=== PATIENT | female | born 1980 | race Caucasian/White ===

== ENCOUNTER 2022-06-09 00:07 | Day surgery (SDC) | payer OTHER, SELFPAY ==
[2022-06-03 09:48] VITALS: BMI 28.0
--- NOTE | 2022-06-03 09:52 | PC.NURSE ---
Report to the Outpatient Waiting Room, entrance under the green pavilion located off [facility], at time 0600 on date 06/09/22. Planned Procedure Time: 0730. Time changes happen often and if your time is changed the preop area will call you the afternoon before. - You and your visitor will be asked to self-screen and do not enter if you have any COVID symptoms. - We encourage only one visitor and NO visitors under age 16 are allowed at this time. Your visitor will receive communication by the phone number that is given day of service. - The patient visitor is requested to social distance or may leave the building when not with patient due to restrictions. - A mask is OPTIONAL within the hospital. Patients may have clear liquids (water, carbonated beverages, clear teas, apple juice) until 3 hours prior to surgery with a maximum of 20 ounces. - No food from midnight until time of surgery Take the following medications with a SIP of water the morning of surgery: N/A Medications to discontinue per physician: N/A Date to take last dose: N/A Please no make-up, nail faroese, hairspray, perfume, deodorant, or body powder the day of surgery. No jewelry (including any body piercings) or valuables the day of surgery, leave them at home. Please take a shower or bath the night before, or the morning of, surgery with an antibacterial soap. Wear comfortable, loose fitting clothing. - Jewelry must be removed prior to entering the operating room. Rings and piercings that are not removed may be cut off. - The hospital will not accept responsibility for valuables. - Please leave all valuables, including medications, at home the day of surgery. If you are going home after surgery, a licensed road driver must drive you home. - NO public transportation without another adult. - We recommend that an adult stay with you for 24 hours following discharge. - We also recommend that you do not drive, make important decision, drink alcoholic beverages, or take any drugs that were not prescribed by your health care provider for at least 24 hours after your discharge time. Follow any additional instructions given to you from your surgeon. If you or anyone in your household have experienced Covid symptoms in the past week, please notify your surgeon or the nurse liaison at the phone number below for possible testing. Telephone instructions given to PT - RENEE PRASANNA and asked if any additional questions and then verbalized understanding. Patient advised to call surgeon office or pre surgery nurse liaison [phone] if any additional questions.
[2022-06-09] VITALS (12 sets, daily range): BP systolic 101–126; BP diastolic 58–83; PULSE 60–95; RESP 10–18; TEMP 36.1–37.5; O2SAT 97–100
--- NOTE | 2022-06-09 05:51 | ECG_ITS ---
Measurements Intervals [place] Rate: 61 P: 29 WV: 166 QRS: 65 QRSD: 88 T: 39 QT: 391 QTc: 395 Interpretive Statements SINUS RHYTHM NORMAL ECG NO PREVIOUS ECG AVAILABLE FOR COMPARISON Electronically Signed On 06-09-2022 7:56:16 [employer] by Antony Acosta D.O.
[2022-06-09 06:45] LABS: Urine Cotinine NEGATIVE
[2022-06-09] MEDS: LACTATED RINGERS 1,000 ML 30 ML IV CONT ×2 (06:45→12:04)
[2022-06-09 06:50] LABS: Hematocrit 40.6 % (37.0-47.0); Hemoglobin 14.1 g/dL (12.0-15.0)
--- NOTE | 2022-06-09 06:58 | WPDHPUPDATE1 ---
History and Physical Update Update Date/Time: 06/09/22 06:58 History and Physical has been reviewed, including an updated exam of the patient. There are NO changes in the patient's condition. Risks, benefits, and alternatives have been discussed and questions answered. Patient agrees to proceed with procedure.
--- NOTE | 2022-06-09 07:18 | W.PM.PROC2 ---
Procedure Note - Detailed Date of Procedure 06/09/22 Pre-op Diagnosis Skin Laxity, Gilbert Micromastia Post-op Diagnosis Same Procedure Performed 1. Bilateral augmentation mammaplasty 2. Progressive tension abdominoplasty with suction lipectomy Surgeon Manny Cunningham MD Anesthesia General Findings Bilateral dual plane 3 augmentation Dov Blankenship SoftTouch 350cc implants Right - REF# SSL-350 SN [id number] Left - REF# [id number] SN [id number] Lipoaspirate: 2250 cc Description of Procedure They are here today for the above. Previously and again today the risks, benefits, alternatives were discussed in extensive detail. I wanted them to be very realistic about the risks involved as well as expectations. We discussed aftercare and what to monitor for. We again discussed implant selection and she is very interested in a low profile implant. I was very upfront about the risks of wound breakdown leading to loss of skin, open wounds, and need for additional procedures with permanent abdominal deformity. We discussed DVT/PE risks and management. Made sure answered all of their questions to their satisfaction today and consent was obtained. Marked in the preoperative holding area with their verification. The patient was taken to the operating room placed supine on the operating table. Anesthesia was provided by anesthesiology. A Hastings catheter was started. A surgical time-out was taken. Breast We cleansed the skin and 1% lidocaine and 0.25% Marcaine with epinephrine was used anesthetize as a field block for the breast. She was prepped and draped in a standard sterile 360 degree fashion. Tegaderm nipple [place] were placed. A 15 blade used to make an incision along the inframammary fold. Dissection was continued at 45 degree angle until the chest wall as identified. I incised the pectoralis major along its inferior border and completely released the inferior border leaving the medial border intact. I created a subpectoral pocket in the appropriate dimensions based on our preoperative planning for the implant. I then copiously irrigated with saline solution and verified a strict hemostasis. Next the use a triple antibiotic and Betadine containing solution to irrigate the pocket. I washed my gloves with the triple antibiotic and Betadine solution. We washed the implant immediately upon opening it with this solution and only opened it when we needed it. I used implant funnel and no-touch technique. The implant was introduced into the pocket using the funnel. Having verified positioning of the implant this was closed using 2-0 Vicryl followed by 3-0 Monocryl in a running subcuticular 4-0 Monocryl followed by tissue glue. Abdomen I placed the patient in a flexed position to verify the upper and lower markings would reach. I then placed supine. A thorough abdominal examination was completed. Stab incisions were made and tumescent solution infiltrated. Once adequate time for hemostasis suction lipectomy was completed based on S.A.F.E. technique utilizing a 5mm basket cannula in multiple plans and passes. She was turned to bilateral lateral decubitus positions with care taken to protect her while turning. This was based on pre-operative planning, intraoperative observation, and rolling pinch test which was in full agreement. A 10 blade was used to make the upper incision. I continued dissection down to the level of fascia. Elevated just what was necessary for repair of the diastasis leaving perforators intact. I then again flexed the bed to verify the upper skin flap would reach the lower markings without tension. Once verified I placed her supine once again and a 10 blade used to make the lower incision. I elevated up to level the umbilicus and left the umbilicus intact on a well-vascularized stalk. The intervening tissue was removed. A 2 mm blunt cannula with 0.5% bupivicaine was injected deep to the fascia bilaterally. I plicated the
--- NOTE | 2022-06-09 07:18 | WPDANESEPPF ---
Anes - Initial Pre Proc Eval Procedure: Operation Date: 06/09/22 07:30 Proposed Procedures p Abdominoplasty with Liposuction - Manny Cunningham MD s Bilateral Breast Augmentation - Manny Cunningham MD Date/Time: 06/09/22 07:18 Surgeon: Manny Cunningham MD Pre Op Diagnosis: Skin Laxity, Gilbert Micromastia Patient Data Age: 41 Gender: F Height: 1.6 m Weight: 71.67 kg Allergies Allergy/AdvReac Type Severity Reaction Status Date / Time No Known Allergies Allergy Unverified 06/03/22 09:48 Home Medications Medication Instructions Recorded Confirmed Type No Home Medications 11/20/21 06/03/22 History Laboratory Tests 06/09/22 06/09/22 06:29 06:29 Hgb 14.1 g/dL g/dL (12.0-15.0) Hct 40.6 % % (37.0-47.0) Cotinine Negative Patient hx anesthesia problems: none Family hx anesthesia problems: none Results Review: All pre-operative results and documents have been reviewed as part of the pre-operative evaluation. [facility] Social History Social History (Updated 11/20/21 @ 11:28 by Chetna Causey) Smoking status: Never smoker Alcohol intake: current Drinks per week: 4 Substance use: never Substance use type: does not use Living arrangements: with family Spiritual care concerns: No Anes - Eval Final PreProcedure Day of Procedure 06/09/22 07:18 Patient weight: normal Heart: regular rate and rhythm Lungs: clear to auscultation Airway: Mallampati scale class II Neurological: alert and oriented Last oral intake: >/= 8 hours ASA classification: II Emergent: no Anesthetic plan: proceed Anesthesia type and monitoring: general ETT and standard monitoring Results Review: All pre-operative results and documents have been reviewed as part of the pre-operative evaluation. Informed Consent: The patient's anesthetic plan and its attendant risks and benefits were discussed with the patient/family/POA. Questions were solicited and answers provided to the satisfaction of the patient/family/POA.
[2022-06-09] MEDS: ceFAZolin 2 GM/D5W 50 ML 2 GM/50 ML BAG IVPB (07:32)
[2022-06-09] MEDS: TRANEXAMIC ACID 1,000MG/ISO100 1,000 MG/100 ML BAG 200 MG IVPB (07:43)
[2022-06-09] MEDS: LACTATED RINGERS IRRIG 1,000 ML, LIDOCAINE HCL 1% LOCAL INJ 50 ML, EPINEPHrine HCL INJ ... INFILTRATE ×2 (09:04→11:34)
[2022-06-09] MEDS: LIDOCAINE HCL 1% PF 30 ML VIAL INFILTRATE (09:06)
[2022-06-09] MEDS: BUPIVACAINE/EPINEPHRINE 0.25% 50 ML VIAL 100 ML INFILTRATE (11:34)
[2022-06-09] MEDS: ONDANSETRON INJ 4 MG/2 ML VIAL IV PUSH ×2 (12:46→20:32)
[2022-06-09 13:36] LABS: HIV 1/2 Ab P24 Ag Result Negative (Negative)
--- NOTE | 2022-06-09 13:45 | OBPPTRN ---
1323 Patient transferred to post room #284 via bed. Oriented to unit, room, information board, admission packet and security measures. Patient verbalizes understanding.
[2022-06-09] MEDS: LACTATED RINGERS 1,000 ML 125 ML IV CONT (13:57)
[2022-06-09] MEDS: MORPHINE SULFATE (*CRX) 2 MG/ML INJ IV PUSH (14:04)
[2022-06-09 14:10] LABS: Hepatitis B Surface Anti Res Negative
[2022-06-09 14:11] LABS: Hepatitis C Virus Antibody Negative (Negative)
[2022-06-09] MEDS: GABAPENTIN 300 MG CAPSULE PO (17:35)
[2022-06-09] MEDS: carisoprodoL (*CRX) 350 MG TABLET PO ×2 (17:35→23:25)
[2022-06-09] MEDS: KETOROLAC 15 MG/ML VIAL (*BKC) IV PUSH (17:36)
[2022-06-09] MEDS: ENOXAPARIN 40 MG/0.4 ML SYRINGE SUB-Q (17:39)
[2022-06-09] MEDS: DOCUSATE SODIUM 100 MG CAPSULE PO (19:37)
[2022-06-09] MEDS: oxyCODONE/ACETAMINOPHEN (*CRX) 5-325 MG TABLET PO (19:38)
[2022-06-10] MEDS: oxyCODONE/ACETAMINOPHEN (*CRX) 5-325 MG TABLET PO ×2 (02:46→11:31)
[2022-06-10] MEDS: carisoprodoL (*CRX) 350 MG TABLET PO ×2 (05:24→11:31)
[2022-06-10 05:27] VITALS: BP 102/60; PULSE 85; RESP 20; TEMP 36.9; O2SAT 98
--- NOTE | 2022-06-10 06:43 | WPDPN ---
Progress Note: A&P Assessment and Plan (1) Skin laxity: Code(s): L57.4 - Cutis laxa senilis Status: Acute Assessment and Plan: Doing well after bilateral augmentation mammaplasty and progressive tension abdominoplasty with suction lipectomy. Will discharge home. Follow-up 1 week. Today we had a lengthy discussion about the care. What to monitor for. Activity limitations. What is an emergency / when to proceed to ER / dial 911. She will call with all other questions or concerns. She voiced a clear understanding. (2) Micromastia: Code(s): N64.82 - Hypoplasia of breast Status: Acute Subjective Date/time seen: 06/10/22 06:43 Interval history: She is doing very well after bilateral augmentation mammaplasty and progressive tension abdominoplasty with suction lipectomy. She states pain well controlled. No f/c. Some nausea which hs improved. No vomiting. No SOB. No CP. No calf tenderness. Review of Systems Review of Systems: All systems reviewed & are unremarkable except as noted in HPI and below Exam Narrative: A&O NOD Resp unlabored Bilateral breast soft. No signs of infection. No hematoma. No seroma. Good color and capillary refill. Abdomen soft. No signs of infection. No hematoma. No seroma. Good color and capillary refill. No calf tenderness. Negative Homann's Objective Data Vital Signs Vital Signs: Vital Signs - 24 hr 06/09/22 07:00 06/09/22 12:04 06/09/22 12:15 Temperature 36.9 C 36.2 C L Pulse Rate 76 79 64 Respiratory Rate 16 10 L 14 Blood Pressure 110/69 126/83 122/78 Pulse Oximetry 100 100 100 Oxygen Delivery Room Air Simple Face Mask Simple Face Mask Oxygen Flow Rate 8 8 06/09/22 12:30 06/09/22 12:40 06/09/22 12:55 Temperature 36.1 C L Pulse Rate 80 64 61 Respiratory Rate 14 18 16 Blood Pressure 126/78 114/80 113/77 Pulse Oximetry 100 100 99 Oxygen Delivery Room Air Room Air Room Air Oxygen Flow Rate 06/09/22 13:05 06/09/22 13:15 06/09/22 13:25 Temperature 36.1 C L 37.5 C Pulse Rate 60 62 66 Respiratory Rate 15 18 16 Blood Pressure 109/76 113/74 107/75 Pulse Oximetry 99 99 97 Oxygen Delivery Room Air Room Air Oxygen Flow Rate 06/09/22 16:30 06/09/22 16:30 06/09/22 19:30 Temperature 37.5 C Pulse Rate 81 95 Respiratory Rate 16 18 Blood Pressure 101/58 L Pulse Oximetry 99 98 Oxygen Delivery Room Air Room Air Oxygen Flow Rate 06/09/22 19:30 06/09/22 23:25 06/09/22 23:25 Temperature 37.3 C 37.1 C Pulse Rate 95 90 Respiratory Rate 18 18 Blood Pressure 113/71 112/63 Pulse Oximetry 98 97 Oxygen Delivery Room Air Oxygen Flow Rate 06/10/22 05:27 06/10/22 05:40 Temperature 36.9 C Pulse Rate 85 Respiratory Rate 20 Blood Pressure 102/60 Pulse Oximetry 98 Oxygen Delivery Room Air Oxygen Flow Rate Intake/Output Intake/Output: Intake & Output 06/07/22 06/08/22 06/09/22 06/10/22 23:59 23:59 23:59 23:59 Intake Total 3240 600 Output Total 2125 375 Balance 1115 225 Meds/Results Medications: Active Medications Generic Name Dose Route Start Last Admin Trade Name Freq PRN Reason Stop Dose Admin Carisoprodol 350 mg 06/09/22 18:00 06/10/22 05:24 Carisoprodol (*Crx) 350 Mg Tablet PO 350 mg Q6HR JENNIFER Administration Diazepam 5 mg 06/09/22 11:42 Diazepam (*Crx) 5 Mg Tablet PO TID PRN Anxiety Docusate Sodium 100 mg 06/09/22 21:00 06/09/22 19:37 Docusate Sodium 100 Mg Capsule PO 100 mg Q12HR JENNIFER Administration Enoxaparin Sodium 40 mg 06/09/22 18:00 06/09/22 17:39 Enoxaparin 40 Mg/0.4 Ml Syringe SUB-Q 40 mg DAILY JENNIFER Administration Gabapentin 300 mg 06/09/22 13:00 06/09/22 20:00 Gabapentin 300 Mg Capsule PO Not Given TID JENNIFER Ketorolac Tromethamine 15 mg 06/09/22 11:42 06/09/22 17:36 Ketorolac 15 Mg/Ml Vial (*Bkc) IV PUSH 15 mg Q6H PRN Administration Pain Rated 4-6 Morphine Sulfate 2 mg
--- NOTE | 2022-06-10 06:46 | P.DS_ITS ---
DS: Admitting Diagnosis Discharge Date 06/10/2022 Admitting Diagnosis Micromastia / skin laxity DS: Discharge Diagnosis Discharge Diagnosis (1) Micromastia: Code(s): N64.82 - Hypoplasia of breast Status: Acute (2) Skin laxity: Code(s): L57.4 - Cutis laxa senilis Status: Acute DS: Summary Hospital Course Hospital Course: She underwent bilateral augmentation mammaplasty and progressive tension abdominoplasty with suction lipectomy. Postoperatively has done very well. Will discharge home. Time Spent with Patient Time attestation: Total time spent providing and/or coordinating discharge services: Exam Narrative: A&O NOD Resp unlabored Bilateral breast soft. No signs of infection. No hematoma. No seroma. Good color and capillary refill. Abdomen soft. No signs of infection. No hematoma. No seroma. Good color and capillary refill. No calf tenderness. Negative Homann's DS: Data Data Completed and Pending Labs on day of discharge: Labs from last 24 hours 06/09/22 06/09/22 12:16 06:29 Hgb 14.1 Hct 40.6 Hep Bs Antibody Negative Hepatitis C Ab Screen Negative HIV 1&2 Ab/P24 Ag 4thGn Negative Discharge Plan Discharge Patient Disposition: Home, Self-Care Discharge Instructions: POST OPERATIVE DISCHARGE INSTRUCTIONS MANNY CUNNINGHAM M.D. [facility] PLASTIC SURGERY [address] [place] [address] * No driving for 24 hours after anesthesia and while you are taking pain medication. * Take all prescribed medication as directed * Diet as tolerated. * No lifting or activity that raises blood pressure for 48 hours. * Regular walking / ambulation. * May shower 24 hours after surgery. Once you shower do not take pain medication before showering as the combination of medication and heat may cause you to feel dizzy or pass out. * No pools or tubs for 2 weeks. * Slowly stand up straight as tolerated. * No straining or lifting more than 20 pounds. * If no bowel movement within 24 hours may use laxative. * Call with any questions or concerns. * Dressing Care: Continue abdominal binder / foam and surgical bra 23 hours per day. If you have any questions or concerns, please call the office . If it is after hours you will be directed to the button grader exchange. Shortness of breath, chest pain, or other medical emergency dial 911 / proceed to the Emergency Room. Stand Alone Forms: General Discharge Instructions Follow-up/Referrals: Manny Cunningham MD [Physician] - 1 Week Discharge Medications: No Action No Home Medications
[2022-06-10 08:00] VITALS: BP 108/62; PULSE 96; RESP 18; TEMP 37.3; O2SAT 98
[2022-06-10] MEDS: GABAPENTIN 300 MG CAPSULE PO (08:13)
[2022-06-10] MEDS: DOCUSATE SODIUM 100 MG CAPSULE PO (08:13)
[2022-06-10] MEDS: ENOXAPARIN 40 MG/0.4 ML SYRINGE SUB-Q (08:14)
[2022-06-10] MEDS: ONDANSETRON INJ 4 MG/2 ML VIAL IV PUSH (08:14)
[2022-06-10] MEDS: KETOROLAC 15 MG/ML VIAL (*BKC) IV PUSH (08:24)
--- NOTE | 2022-06-10 10:45 | WPDANLDPN2 ---
Anes-Prog Note L&D Date/Time: 06/10/22 10:45 Comfortable throughout: labor and delivery Neuraxial method: epidural Epidural/Spinal procedure site: clean & non-tender Neuro status: Neuro function grossly intact. Cardiovascular status: normal Respiratory status: normal Airway patency: baseline Mental status: baseline Post-Op hydration status: normal Vital Signs: Last Vital Signs Temp 37.3 C 06/10/22 08:00 Pulse 96 06/10/22 08:00 Resp 18 06/10/22 08:00 BP 108/62 06/10/22 08:00 Pulse Ox 98 06/10/22 08:00 O2 Del Method Room Air 06/10/22 05:40 O2 Flow Rate 8 06/09/22 12:15 Pain score (VAS): 0 I/O: Intake & Output 06/09/22 06/10/22 06/10/22 23:59 07:59 15:59 Intake Total 2290 600 700 Output Total 1950 375 25 Balance 340 039 675 Patient feedback: Patient satisfied with anesthetic care.
--- NOTE | 2022-06-10 10:46 | WPDANESPN ---
Anes - Prog Note Post-Op Date/Time: 06/10/22 10:46 Cardiovascular status: normal Respiratory status: normal Airway patency: baseline Mental status: baseline Post-Op hydration status: normal Vital Signs: Last Vital Signs Temp 37.3 C 06/10/22 08:00 Pulse 96 06/10/22 08:00 Resp 18 06/10/22 08:00 BP 108/62 06/10/22 08:00 Pulse Ox 98 06/10/22 08:00 O2 Del Method Room Air 06/10/22 05:40 O2 Flow Rate 8 06/09/22 12:15 Pain Score (VAS): 3 I/O: Intake & Output 06/09/22 06/10/22 06/10/22 23:59 07:59 15:59 Intake Total 2290 600 700 Output Total 1950 375 25 Balance 340 225 675 Laboratory Tests 06/09/22 06:29 06/09/22 12:16 Hep Bs Antibody Negative Hepatitis C Ab Screen Negative HIV 1&2 Ab/P24 Ag 4thGn Negative Patient Feedback: Patient satisfied with anesthetic care. mild PONV, resolved
== END 2022-06-10 12:00 | disposition home or self-care (01) ==
LOC: ANHSURGERY 06:11 → ANHOB2 13:22
PROVIDERS: Anesthesiology; PCP Nurse Practitioner; Visit Provider Surgery Plastic and Reconstructive Surgery
PROC: (CPT 19325; principal; 2022-06-09 07:30)
PROC: (CPT 19325; 2022-06-09 07:30)
DX: Z41.1 Encounter for cosmetic surgery (principal); N64.82 Hypoplasia of breast; L57.4 Cutis laxa senilis; Z11.4 Encounter for screening for human immunodeficiency virus [HIV]
CPT/HCPCS: 19325; 15830; 15847; 15877; 80307; 85014; 85018; 86703; 86706; 86803; 93005; 99199; A9270; G0432; J0171; J0690; J1100; J1170; J1580; J1650; J1885; J2250; J2270; J2370; J2405; J2704; J2710; J3010; J7120